=== PATIENT | female | born 1990 | race Two or more races ===

== ENCOUNTER 2023-10-30 08:38 | Outpatient (CLI) | payer OTHER | END 2023-10-30 08:57 | disposition home or self-care (01) | LOC: SONOGRAMA 08:38 | PROVIDERS: ATTEND Obstetrics & Gynecology | DX: N96 Recurrent pregnancy loss (principal); N97.0 Female infertility associated with anovulation ==

== ENCOUNTER 2024-02-25 11:45 | Outpatient (CLI) | payer OTHER | END 2024-02-25 11:46 | disposition home or self-care (01) | LOC: PRENATAL 11:45 | PROVIDERS: ATTEND Obstetrics & Gynecology Maternal & Fetal Medicine | DX: Z76.1 Encounter for health supervision and care of foundling (principal) ==

== ENCOUNTER → 2024-09-14 08:37 | Outpatient (CLI) | payer OTHER | END | disposition home or self-care (01) | LOC: PRENATAL 08:37 | PROVIDERS: ATTEND Obstetrics & Gynecology Maternal & Fetal Medicine | DX: O36.80X0 Pregnancy with inconclusive fetal viability, not applicable or unspecified (principal); Z36.82 Encounter for antenatal screening for nuchal translucency; O26.20 Pregnancy care for patient with recurrent pregnancy loss, unspecified trimester; O09.529 Supervision of elderly multigravida, unspecified trimester; Z3A.13 13 weeks gestation of pregnancy ==

== ENCOUNTER 2024-11-10 07:30 | Outpatient (CLI) | payer OTHER | END 2024-11-10 07:31 | disposition home or self-care (01) | LOC: PRENATAL 07:30 | PROVIDERS: ATTEND Obstetrics & Gynecology Maternal & Fetal Medicine | DX: O44.00 Complete placenta previa NOS or without hemorrhage, unspecified trimester (principal); O26.20 Pregnancy care for patient with recurrent pregnancy loss, unspecified trimester; O09.529 Supervision of elderly multigravida, unspecified trimester; Z3A.21 21 weeks gestation of pregnancy ==

== ENCOUNTER 2025-01-03 09:04 | Emergency (ER) | payer OTHER ==
[~2025-01-03] VITALS: Ht 152.4 cm; Wt 60.8 kg
[2025-01-03] MEDS ORDERED: ADULT LOW DOSE81 M1 PO (09:19)
[2025-01-03] MEDS ORDERED: PRENATAL VITAM1 EAC5 PO (09:20)
[2025-01-03 09:23] VITALS: BP 108/78; O2SAT 98
[2025-01-03] MEDS ORDERED: 0.9 % SODIUM CHLORIDE 500 ML IV ONE (11:45)
[2025-01-03] MEDS ORDERED: FAMOtidine 10 MG/ML (4ML VIAL) IV ONE (11:45)
[2025-01-03 12:22] LABS: BASO % 0.4 % (0.1-1.2); EOS # 0.02 (0.04-0.54); EOS % 0.1 % (0.7-7.0); LYMPH # 0.48 (1.18-3.74); LYMPH % 2.9 % (19.3-53.1); MEAN PLATELET VOLUME 10.50 fl (9.4-12.4); MONO # 0.94 (0.24-0.82); MONO % 5.7 % (4.7-12.5); NEUT # 14.85 (1.56-6.13); NEUT % 90.2 % (34.0-71.1); RED CELL DISTRIBUTION WIDTH 11.9 % (11.6-14.4)
[2025-01-03 12:39] LABS: ALT/SGPT 22.0 U/L (12-78); AST/SGOT 21.0 U/L (15-37); BILIRUBIN TOTAL 0.27 mg/dL (0.3-1.2); BUN CREA RATIO 24.0 (7.0-25.0); CREATININE SERUM 0.42 mg/dL (0.55-1.02); GFR 170.71; GLOBULINA 4.3 G/DL (2.4-3.5); GLUCOSE FASTING 99.0 mg/dL (65-100); OSMOLALITY SERUM 282.0 MOSM/KG (275-295)
[2025-01-03 13:16] LABS: URINE APPEARANCE Clear; URINE BILIRRUBIN Negative (NEGATIVE); URINE BLOOD Negative; URINE COLOR Yellow; URINE GLUCOSE Negative (NEGATIVE); URINE KETONE 15 (NEGATIVE); URINE LEUKOCYTE Negative; URINE NITRATE Negative; URINE PROTEIN Trace (NEGATIVE); URINE UROBILINOGEN 0.2 E.U./dl
[2025-01-03 13:20] LABS: URINE EPITHELIAL CELLS 19.8 uL (0.0-38.8); URINE RBC 6.0 uL (0.0-20.8); URINE WBC 25.8 uL (0.0-23.2)
[2025-01-03 14:17] LABS: TYPE CELLS SQUAMOUS; URINE CAST 0.14 uL (0.0-1.40); URINE MUCUS MODERATE
[2025-01-03] MEDS ORDERED: ZOFRAN8 MG PO (16:04)
== END 2025-01-03 22:24 | disposition home or self-care (01) ==
LOC: ER 09:04
PROVIDERS: Preventive Medicine Public Health & General Preventive Medicine
DX: O21.8 Other vomiting complicating pregnancy (principal); Z3A.28 28 weeks gestation of pregnancy

== ENCOUNTER 2025-02-02 13:58 | Outpatient (CLI) | payer OTHER ==
[~2025-02-02 13:58] MED LIST: ADULT LOW DOSE81 M1 PO; PRENATAL VITAM1 EAC5 PO; ZOFRAN8 MG PO
== END 2025-02-02 15:20 | disposition home or self-care (01) ==
LOC: NST 13:58
PROVIDERS: ATTEND General Practice
DX: Z34.83 Encounter for supervision of other normal pregnancy, third trimester (principal)